=== PATIENT | male | born 1970 | race Caucasian/White ===

== ENCOUNTER 2016-11-04 17:38 | Emergency (ER) | payer MEDICAID ==
[~2016-11-04] VITALS: Ht 154.9 cm; Wt 63.5 kg
[2016-11-04 17:47] VITALS: BP_SYST 161
--- NOTE | 2016-11-04 17:56 | NUR ---
Patient to ER bed 01 to gown for evaluation. Side rails up.
--- NOTE | 2016-11-04 17:56 | NUR ---
Dr Ward at bedside examining patient
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
[2016-11-04 18:04] LABS: BASOPHILS # (AUTO) 0.1 K/uL (0.0-0.2); BASOPHILS % (AUTO) 1.7 % (0.0-2.0); EOSINOPHILS # (AUTO) 0.3 K/uL (0.0-0.4); EOSINOPHILS % (AUTO) 2.9 % (0.0-4.0); HEMATOCRIT 44.6 % (36-54); HEMOGLOBIN 15.3 g/dL (14.0-18.0); LYMPHOCYTES # (AUTO) 1.4 K/uL (1.0-5.5); LYMPHOCYTES % (AUTO) 15.5 % (20.5-51.5); MEAN CORPUSCULAR HEMOGLOBIN 31 pg (27-31); MEAN CORPUSCULAR HGB CONC 34 % (32-36); MEAN CORPUSCULAR VOLUME 89 fL (79.0-98.0); MONOCYTES # (AUTO) 0.7 K/uL (0.0-1.0); MONOCYTES % (AUTO) 7.8 % (1.7-9.3); NEUTROPHILS # (AUTO) 6.2 K/uL (1.8-7.7); NEUTROPHILS % (AUTO) 72.1 % (40.0-70.0); PLATELET COUNT (AUTO) 222 K/uL (130-430); RED BLOOD CELL COUNT(AUTO) 4.99 MIL/uL (4.2-6.2); RED CELL DISTRIBUTION WIDTH 13.3 % (9.0-15.0); WHITE BLOOD COUNT (AUTO) 8.7 K/uL (4.8-10.8)
--- NOTE | 2016-11-04 18:10 | NUR ---
Security at bedside to wand patient, pt cooperative with staff.
[2016-11-04 18:21] LABS: ANION GAP 7 (5-15); CALCIUM 8.2 mg/dL (8.4-11.0); CHLORIDE 109 mmol/L (98-107); CREATININE 0.82 mg/dL (0.55-1.30); GLUCOSE 130 mg/dL (70-99); POTASSIUM 3.3 mmol/L (3.5-5.1); SODIUM SERUM 141 mmol/L (136-145); UREA NITROGEN, BLOOD 18 mg/dL (8-21)
[2016-11-04 18:25] LABS: ALANINE AMINOTRANSFERASE 47 U/L (12-78); ALBUMIN 3.4 g/dL (3.4-4.8); ASPARTATE AMINOTRANSFERASE 17 U/L (10-37); SALICYLATE 2 mg/dL (3-30); TOTAL BILIRUBIN 0.2 mg/dL (0.0-1.0); TOTAL PROTEIN, SERUM 6.4 g/dL (6.4-8.3)
[2016-11-04 18:26] LABS: ALCOHOL, BLOOD < 3 mg/dL (<10); GFR AFRICAN AMERICAN 130 mL/min (>90)
[2016-11-04 18:27] LABS: ACETAMINOPHEN < 1 ug/mL (1-30)
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
[2016-11-04 19:31] LABS: BARBITURATE, URINE NEGATIVE (NEG <=200); BENZODIAZEPINE, URINE NEGATIVE (NEG <=150); CANNABINOID, URINE NEGATIVE (NEG <=50); COCAINE, URINE NEGATIVE (NEG <=150); METHAMPHETAMINES SCREEN,URINE POSITIVE (NEG <=500); OPIATE, URINE NEGATIVE (NEG <=100); PHENCYCLIDINE SCREEN,URINE NEGATIVE (NEG <=25); UR TRICYCLIC ANTIDEPRESSANTS NEGATIVE (NEG <=300); URINE AMPHETAMINE POSITIVE (NEG <=500); URINE METHADONE NEGATIVE (NEG <=200); URINE OXYCODONE SCREEN NEGATIVE (NEG <=100); URINE PROPOXYPHENE SCREEN NEGATIVE (NEG <=300)
[2016-11-04] MEDS ORDERED: LORazepam 2 MG/ML VIAL IVP ONE (20:00)
[2016-11-04] MEDS ORDERED: LORazepam 2 MG/ML VIAL (FOR ER USE) ONE (20:07)
--- NOTE | 2016-11-04 20:52 | NUR ---
PT'S INFO PACKET FAXED TO THE FOLLOWING PSYCHIATRIC FACILITIES: [facility], [facility], [facility], [facility], [facility], [facility], [facility], [facility], AND [facility]. AWAITING REPLY.
--- NOTE | 2016-11-04 21:23 | NUR ---
Pt resting at this time after Ativan administration, VS WNL
--- NOTE | 2016-11-04 22:57 | NUR ---
Pt on stable condition, resting at this time, VS WNL.
--- NOTE | 2016-11-05 02:51 | NUR ---
Note undone in EDM - 11/05/16 at 1950 by SDEDRW RECIEVED CALL FROM DR. PADILLA. CALL FORWARDED TO DR. SINGER. WE REICEVED AUTHORIZATION FOR OUR MEDICAL TREATMENT. AUTHORIZATION #[id number] PER DR. PADILLA THE PT'S IS INSURANCE IS A MANAGED [facility] AND THAT ONCE THE PT'S ETOH REACHES AN ACCPETABLE LEVEL, THE PT CAN BE TRANSFERRED TO ANY [facility] CONTRACTED FACILITY.
--- NOTE | 2016-11-05 03:00 | NUR ---
Pt is sleeping in bed. VSS. Will continue to monitor. No distress noted.
--- NOTE | 2016-11-05 07:05 | NUR ---
Security called to wand patient. Patient in stable condition, asking for food. Dietary already called for safety tray. No suicidal or homicidal ideation per patient or noted. Curtain open to closely monitor patient (bed 5 not available for use). No contraband in room./
--- NOTE | 2016-11-05 07:05 | NUR ---
Report and care given to Brenda SALES.
--- NOTE | 2016-11-05 07:30 | NUR ---
Security wanded patient, no contraband found.
--- NOTE | 2016-11-05 07:31 | NUR ---
Suicide lethality assessment and safety checklist done and placed in chart.
--- NOTE | 2016-11-05 08:02 | NUR ---
Assisted patient to restroom, ambulatory with steady gait. Monitored throughout.
--- NOTE | 2016-11-05 08:06 | NUR ---
Patient eating safety breakfast. Monitored throughout from nursing station. Curtain remains open.
--- NOTE | 2016-11-05 09:10 | NUR ---
Note frankie in EDM - 11/05/16 at 1926 by TRISHA Patient moved due to need of bed 1. Security remaining with patient with constant observation. No sucidal or homicidal ideation. No contraband near patient.
--- NOTE | 2016-11-05 09:11 | NUR ---
Patient moved due to need of bed 1. Security remaining with patient with constant observation. No sucidal or homicidal ideation. No contraband near patient.
[2016-11-05 09:15] LABS: BILIRUBIN,URINE NEGATIVE (NEGATIVE); BLOOD, URINE 2+ (NEGATIVE); CLARITY/URINE CLEAR (CLEAR); COLOR,URINE YELLOW (YELLOW); GLUCOSE,URINE NEGATIVE (NEGATIVE); KETONES,URINE NEGATIVE (NEGATIVE); LEUKOCYTE ESTERASE ,URINE NEGATIVE (NEGATIVE); NITRITE, URINE NEGATIVE (NEGATIVE); PH,URINE 5.5 (5.0-8.0); PROTEIN URINE NEGATIVE (NEGATIVE); UROBILINOGEN,URINE 0.2 (0.2-1.0)
--- NOTE | 2016-11-05 09:20 | NUR ---
Note frankie in EDM - 11/05/16 at 1927 by TRISHA No suicidal or homicidal ideation per patient or noted. Stable condition. Curtain open to closely monitor patient (bed 5 not available for use). No contraband in room.
--- NOTE | 2016-11-05 09:22 | NUR ---
Security remaining with patient with constant observation. No sucidal or homicidal ideation. No contraband near patient.
--- NOTE | 2016-11-05 09:45 | NUR ---
snacks given to pt and with good appetite
--- NOTE | 2016-11-05 10:00 | NUR ---
placement confirmed to [facility]. Report given and faxed information.
--- NOTE | 2016-11-05 10:00 | NUR ---
No suicidal or homicidal ideation per patient or noted. Stable condition. Continuously monitored by security.
[2016-11-05 10:22] LABS: BACTERIA,URINE FEW /HPF (None Seen); WBC,URINE NONE SEEN /HPF (0-3)
[2016-11-05 10:23] LABS: MUCUS,URINE None Seen /LPF (None Seen)
--- NOTE | 2016-11-05 11:02 | NUR ---
Family notified regarding pt being transfered to [facility].
[2016-11-05 11:30] VITALS: BP_SYST 121
--- NOTE | 2016-11-05 11:30 | NUR ---
Patient to be transferred to [facility]. Receiving facility has accepting physician and available space. ER physician has signed transfer form. Patient or responsible republican has agreed to transfer and signed form. Patient belongings inventoried and will be sent with patient. IV catheter removed, intact, no active bleeding. Copy of nursing notes, lab reports, EKG, Physicians Orders and X-rays to be sent with patient.
== END 2016-11-05 11:30 ==
LOC: SED 17:38
DX: F32.9 Major depressive disorder, single episode, unspecified (principal); R45.851 Suicidal ideations; F15.10 Other stimulant abuse, uncomplicated; F41.9 Anxiety disorder, unspecified
CPT/HCPCS: 36415; 71010; 80053; 80307; 81000; 85025; 93005; 96374; 99285; G0480; G0481; G0482; J2060